=== PATIENT | male | born 1985 | race Caucasian/White ===

== ENCOUNTER 2019-07-10 12:22 | Emergency (ER) | payer OTHER ==
[2019-07-10 13:11] VITALS: BP 139/64
--- NOTE | 2019-07-10 13:19 | UC ---
Skin Complaint HPI - History of Current Complaint Chief Complaint: UCRash Time Seen by Provider: 07/10/19 13:05 Stated Complaint: SKIN CONCERN Hx Obtained From: Patient Pain Intensity: 5 - Allergy/Home Medications Allergies/Adverse Reactions: Allergies Allergy/AdvReac Type Severity Reaction Status Date / Time No Known Allergies Allergy Verified 07/10/19 13:03 Home Medications: Home Medications Hydrocortisone 1% CREAM* [Hytone Cream 1%*] 1 applic TOPICAL QID PRN 07/10/19 [ History Confirmed 07/10/19] diPHENhydraMINE PO* [Benadryl PO 25 MG TAB*] 25 - 50 mg PO Q6H PRN 07/10/19 [ History Confirmed 07/10/19] PMH/Surg Hx/FS Hx/Imm Hx Previously Healthy: Yes - Denies significant PMH - Surgical History Surgical History: None - Family History Known Family History: Positive: Non-Contributory - Social History Occupation: Employed Full-time Lives: With Family Alcohol Use: Rare Substance Use Type: Marijuana Substance Use Comment - Amount & Last Used: Occasionally Smoking Status (MU): Current Some Day Smoker Type: Cigarettes Length of Time of Smoking/Using Tobacco: Since Age 28 Review of Systems All Other Systems Reviewed And Are Negative: Yes Constitutional: Negative: Fever, Chills Skin: Positive: Other - See HPI Eyes: Negative: Drainage, Eye Redness ENT: Positive: Negative Respiratory: Positive: Negative Cardiovascular: Positive: Negative Gastrointestinal: Positive: Negative Genitourinary: Positive: Negative Musculoskeletal: Positive: Negative Neurological: Positive: Negative Is Patient Immunocompromised?: No Physical Exam - Summary Physical Exam Summary: GENERAL APPEARANCE: Well developed, well nourished, alert and cooperative, and appears to be in no acute distress. EYES: Conjunctiva clear. No drainage. EARS: External auditory canals and tympanic membranes clear, hearing grossly intact. NOSE: No nasal discharge. THROAT: Pharynx normal No tonsilar inflammation, swelling, exudate, or lesions. Uvula midline. NECK: Neck supple, non-tender. Tender, palpable left posterior and anterior cervical lymphadenopathy. CARDIAC: Normal S1 and S2. No S3, S4 or murmurs. Rhythm is regular. There is no peripheral edema, cyanosis or pallor. Extremities are warm and well perfused. Capillary refill is less than 2 seconds. Peripheral pulses intact. LUNGS: Clear to auscultation without rales, rhonchi, wheezing or diminished breath sounds. ABDOMEN: Positive bowel sounds. Soft, nondistended, nontender. No guarding or rebound. No masses or hepatosplenomegally. MUSKULOSKELETAL: ROM intact to all extremities. No joint erythema or tenderness. Normal muscular development. Normal gait. SKIN: General skin condition reveals normal color, texture and turgor. Erythematous, inflamed, patches with small intact vesicular lesions to the left cheek within the patient's jacob as well as a small patch behind the posterior left ear. Triage Information Reviewed: Yes Vital Signs: Initial Vital Signs Temp 98.7 F 07/10/19 13:00 Pulse 80 07/10/19 13:00 Resp 16 07/10/19 13:00 BP 139/64 07/10/19 13:00 Pulse Ox 100 07/10/19 13:00 Vital Signs Reviewed: Yes Course/Dx - Course Course Of Treatment: 34-year-old male presents with onset of a erythematous, pruritic, and tender rash to his left cheek that has since spread to behind the left ear as well. States he initially thought it may be a contact dermatitis from hay that he was carrying prior to onset and has been using hydrocortisone cream with no improvement in symptoms. States over the past 2 days he is started noticing a tender inflamed lymph nodes to the left side of his neck. Denies fever, chills , or drainage. Afebrile. Vital signs stable. Patient had erythematous, inflamed, patches with small intact vesicular lesions to the left cheek within the patient's jacob as well as a small patch behind the posterior left ear with left anterior and posterior cervical lymphadenopathy. Remainder of exam is unremarkable. Discussed with the patient that with the lymphadenopathy I am concerned that this may represent an infectious folliculitis although with the vesicular lesions I cannot fully exclude the possibility of herpes zoster. We discussed treatment options including risks and benefits and patient is choosing to treat for both the infectious folliculitis as well as possible shingles at this time. We'll start him on cephalexin 500 mg 4 times a day 7 days as well as start him on valacyclovir 1000 mg 3 times a day 7 days. He is to return here or follow up with his primary care provider in 2-3 days for a recheck of symptoms. Anticipatory guidance and warning symptoms are reviewed with the patient. Verbalizes understanding and agrees with plan of care. - Differential Diagnoses - Skin Complaint Differential Diagnoses: Cellulitis, Contact Dermatitis, Impetigo, MRSA, Tinea, Varicella Zoster - Diagnoses Provider Diagnosis: Folliculitis barbae Discharge ED - Sign-Out/Discharge Documenting (check all that apply): Patient Departure All imaging exams completed and their final reports reviewed: No Studies - Discharge Plan Condition: Stable Disposition: HOME Prescriptions: Cephalexin CAP* [Keflex 500 CAP*] 500 mg PO QID #28 cap Mupirocin 2% CREAM* [Bactroban 2% CREAM*] 1 applic TOPICAL BID #1 tube Valacyclovir HCl [Valacyclovir] 1 gm PO TID #21 tab Patient Education Materials: Shingles (ED), Folliculitis (ED) Referrals: Billy Rivers MD [Primary Care Provider] - 2 Days Additional Instructions: I suspect that the rash to her face is a bacterial infection of the hair follicles called infectious folliculitis barbae however I cannot fully exclude the possibility of shingles. We will start you on an antibiotic to treat for the bacterial infection and has you begin an antiviral treatment for the possibility of shingles. Be aware that the antiviral is not a cure for shingles but is only medical to stop the progression of disease and to minimize symptoms. Start cephalexin 500 mg 4 times a day for 7 days. Start valacyclovir 1000 mg 3 times a day for 7 days. Applied mupirocin ointment to the affected area twice daily. Take acetaminophen (Tylenol) or ibuprofen (Advil, Motrin) according to directions as needed for any pain. Return here or follow-up with your primary care provider in 2 days for a recheck of your symptoms. Seek immediate medical attention in the emergency room if you develop a fever greater than 100.5 F, the rash continues to spread rapidly, you have severe pain that is not managed with the pain medication, or you have any worsening of symptoms. - Billing Disposition and Condition Condition: STABLE Disposition: Home
== END 2019-07-10 13:49 | disposition home or self-care (01) ==
LOC: UCCORT 12:22
DX: L73.8 Other specified follicular disorders (principal); F17.210 Nicotine dependence, cigarettes, uncomplicated
CPT/HCPCS: 99212; G0463